=== PATIENT | male | born 1975 | race Caucasian/White ===

== ENCOUNTER → 2021-06-15 00:44 | Outpatient (CLI) | payer OTHER, SELFPAY ==
[2021-06-16 18:19] LABS: SARS-CoV-2 RNA PCR Positive
== END ==
PROVIDERS: PCP Nurse Practitioner Adult Health; Visit Provider Internal Medicine Gastroenterology
DX: U07.1 COVID-19 (principal)
CPT/HCPCS: C9803; U0003; U0005

== ENCOUNTER 2021-08-06 00:03 | Day surgery (SDC) | payer OTHER, SELFPAY ==
[2021-06-04 15:07] VITALS: BMI 32.2
--- NOTE | 2021-06-17 08:30 | SUR.PREOP ---
CALLED 06/16/21 AT 1900 MESSAGE LEFT ON PT'S PERSONALIZED VOICEMAIL ASKING FOR A RETURN CALL TO DISCUSS HIS COVID RESULTS. CALLED PATIENT ON 06/17/21 AT 0830AM, MESSAGE LEFT ON HIS PHONE TO RETURN CALL ARLET. CALLED PATIENT'S EMERGENCY CONTACT MESSAGE LEFT FOR CINTHIA TO RETURN CALL. DR. JIMENEZ NOTIFIED OF PATIENT'S POSITIVE COVID RESULTS AND PATIENT CANCELLED FOR TOMORROW.
[2021-07-26 10:45] VITALS: BMI 32.2
--- NOTE | 2021-08-05 13:13 | WPDANESEPP ---
Anes - Eval Pre Procedure Procedure: Operation Date: 08/06/21 12:30 Proposed Procedures p Screening Colonoscopy - Calixto Carrillo MD Date/Time: 08/05/21 13:13 Pre Op Diagnosis: neoplasm screening Patient Data Age: 46 Gender: M Height: 1.78 m Weight: 102 kg Allergies Allergy/AdvReac Type Severity Reaction Status Date / Time No Known Allergies Allergy Verified 07/26/21 10:42 Home Medications Medication Instructions Recorded Confirmed Type allopurinol 300 mg PO DAILY 06/04/21 06/04/21 History atorvastatin 20 mg PO DAILY 06/04/21 06/04/21 History fluoxetine 20 mg PO DAILY 06/04/21 06/04/21 History omeprazole 20 mg PO EVERY OTHER DAY 06/04/21 07/26/21 History sildenafil [Viagra] 100 mg PO DAILY PRN 06/04/21 06/04/21 History testosterone 3 pump TOPICAL DAILY 06/04/21 06/04/21 History Patient hx anesthesia problems: none Family hx anesthesia problems: none Results Review: All pre-operative results and documents have been reviewed as part of the pre-operative evaluation. [facility] Past Medical History Medical History (Updated 08/05/21 @ 13:15 by Michelle Bustos CRNA) Anxiety Chronic GERD Depression Hyperlipidemia Obesity (BMI 30.0-34.9) Obstructive sleep apnea Surgical History Surgical History (Updated 08/05/21 @ 13:15 by Michelle Bustos CRNA) S/P tendon repair left arm Social History Social History Smoking status: Never smoker Alcohol intake: current Drinks per week: 1 Substance use: never Living arrangements: with friend(s) Spiritual care concerns: No Exam Day of Procedure 08/05/21 13:13
[2021-08-06 11:00] VITALS: BP 140/90; PULSE 78; RESP 18; TEMP 36.5; O2SAT 97; BMI 30.9
[2021-08-06] MEDS: LACTATED RINGERS 1,000 ML 150 ML IV CONT (11:25)
--- NOTE | 2021-08-06 11:40 | PM.HPGS ---
History of Present Illness History of Present Illness Consent: Risks, benefits, and alternatives have been discussed and questions answered. Patient agrees to proceed with procedure. Chief complaint: neoplasm screening Narrative: Ed Larios is a 46 year old male here for first screening colonoscopy Review of Systems Constitutional: Constitutional: Denies headache(s) and Denies weakness Eyes: Eyes: Denies blurry vision ENT: Reports Normal hearing present, Denies headache(s) and Denies neck pain Cardiovascular: Cardiovascular: Denies chest pain and Denies dyspnea Respiratory: Respiratory: Denies dyspnea Gastrointestinal: Gastrointestinal: Reports no additional gastrointestinal complaints Genitourinary: Genitourinary: Denies dysuria Musculoskeletal: Musculoskeletal: Denies neck pain Integumentary/Breasts: Skin/Breast: Denies dry skin Neurologic: Reports Normal hearing present, Denies headache(s) and Denies weakness Psychiatric: Psychiatric: Denies anxiety Endocrine: Endocrine: Denies change in body appearance Hematologic/Lymphatic: Hematologic/Lymphatic: Denies easy bleeding Allergic/Immunologic: Allergic/Immunologic: Denies urticaria PMF Past Medical History Medical History (Updated 08/06/21 @ 11:40 by Calixto Carrillo MD) Anxiety Chronic GERD Colon cancer screening Depression Hyperlipidemia Obesity (BMI 30.0-34.9) Obstructive sleep apnea Surgical History Surgical History (Updated 08/05/21 @ 13:15 by Michelle Bustos CRNA) S/P tendon repair left arm Social History Social History Smoking status: Never smoker Alcohol intake: current Drinks per week: 1 Substance use: never Living arrangements: with friend(s) Spiritual care concerns: No Meds Home Medications and Allergies Home Medications Medication Instructions Recorded Confirmed Type allopurinol 300 mg PO DAILY 06/04/21 08/06/21 History atorvastatin 20 mg PO DAILY 06/04/21 08/06/21 History fluoxetine 20 mg PO DAILY 06/04/21 08/06/21 History omeprazole 20 mg PO EVERY OTHER DAY 06/04/21 08/06/21 History sildenafil [Viagra] 100 mg PO DAILY PRN 06/04/21 08/06/21 History testosterone 3 pump TOPICAL DAILY 06/04/21 08/06/21 History Allergies Allergy/AdvReac Type Severity Reaction Status Date / Time No Known Allergies Allergy Verified 08/06/21 11:11 Vital Signs Vital Signs - 24 hr 08/06/21 11:00 Temperature 97.7 F Pulse Rate 78 Respiratory Rate 18 Blood Pressure 140/90 Pulse Oximetry 97 Exam Const: General: comfortable and no acute distress HENMT: General nose exam: Normal nares present Eyes: General: appearance normal, both eyes and all related structures Neck: Neck: no JVD Resp: Auscultation: clear to auscultation bilaterally Cardio: Rate: regular rate Rhythm: regular rhythm GI: Inspection: non-distended GI Palp: Yes Soft to palpation Skin: General skin exam: normal color Neuro: General: gait normal Speech: normal speech Extrem: General: normal to inspection Psych: Mental Status: mental status grossly normal Assessment and Plan Assessment and plan (1) Colon cancer screening: Code(s): Z12.11 - Encounter for screening for malignant neoplasm of colon Status: Acute Assessment and Plan: colonoscopy
--- NOTE | 2021-08-06 11:47 | WPDANESEFPP ---
Anes - Eval Final PreProcedure Day of Procedure 08/06/21 11:47 Patient weight: obese Heart: regular rate and rhythm Lungs: clear to auscultation and normal air movement Airway: Mallampati scale class II Neurological: alert and oriented Last oral intake: >/= 8 hours ASA classification: III Emergent: no Anesthetic plan: proceed Anesthesia type and monitoring: general GIVS and standard monitoring Results Review: All pre-operative results and documents have been reviewed as part of the pre-operative evaluation. Informed Consent: The patient's anesthetic plan and its attendant risks and benefits were discussed with the patient/family/POA. Questions were solicited and answers provided to the satisfaction of the patient/family/POA.
[2021-08-06 12:39] VITALS: BP 109/77; PULSE 79; RESP 21; O2SAT 96
[2021-08-06 12:49] VITALS: BP 113/66; PULSE 75; RESP 21; O2SAT 95
[2021-08-06 12:59] VITALS: BP 118/80; PULSE 71; RESP 18; O2SAT 96
== END 2021-08-06 13:06 | disposition home or self-care (01) ==
PROVIDERS: PCP Nurse Practitioner Adult Health; Visit Provider Internal Medicine Gastroenterology
PROC: 0DJD8ZZ Inspection of Lower Intestinal Tract, Via Natural or Artificial Opening Endoscopic (ICD-10-PCS; CPT 45378; principal; 2021-08-06 12:30)
DX: Z12.11 Encounter for screening for malignant neoplasm of colon (principal); K57.30 Diverticulosis of large intestine without perforation or abscess without bleeding; E78.5 Hyperlipidemia, unspecified; K21.9 Gastro-esophageal reflux disease without esophagitis; G47.33 Obstructive sleep apnea (adult) (pediatric); F41.8 Other specified anxiety disorders; E66.9 Obesity, unspecified; Z68.30 Body mass index [BMI] 30.0-30.9, adult
CPT/HCPCS: 45378; J2704; J7120

== ENCOUNTER 2022-06-17 19:12 | Emergency (ER) | payer OTHER, SELFPAY ==
--- NOTE | 2022-06-17 19:20 | ED.URI ---
HPI - URI/Sore Throat General Chief Complaint: Upper Respiratory Infection Stated Complaint: Sore Throat/ Fever Time Seen by Provider: 06/17/22 19:20 Source: patient, RN notes reviewed and old records reviewed Mode of arrival: ambulatory Limitations: no limitations History of Present Illness HPI Narrative: 46-year-old male presents to the [facility] with complaints of sore throat, fevers, body aches, headache that started at 11:00 a.m. yesterday Has taken ibuprofen today. Related Data Home Medications Medication Instructions Recorded Confirmed allopurinol 300 mg tablet 300 mg PO DAILY 06/04/21 06/17/22 atorvastatin 20 mg tablet 20 mg PO DAILY 06/04/21 06/17/22 fluoxetine 20 mg capsule 20 mg PO DAILY 06/04/21 06/17/22 omeprazole 20 mg capsule,delayed 20 mg PO EVERY OTHER DAY 06/04/21 06/17/22 release sildenafil 100 mg tablet (Viagra) 100 mg PO DAILY PRN Sexual Activity 06/04/21 06/17/22 testosterone 20.25 mg/1.25 gram 3 pump topical DAILY 06/04/21 06/17/22 (1.62 %) transdermal gel pump Allergies Allergy/AdvReac Type Severity Reaction Status Date / Time No Known Allergies Allergy Verified 06/17/22 19:21 Review of Systems Review of Systems: All systems reviewed & are unremarkable except as noted in HPI and below Constitutional: Constitutional: Reports as per HPI, Reports fatigue and Reports fever(s) Eyes: Eyes: Reports no additional eye complaints ENT: Reports as per HPI and Reports sore throat Cardiovascular: Cardiovascular: Reports no additional cardiovascular complaints, Denies chest pain and Denies dyspnea Respiratory: Respiratory: Reports no additional respiratory complaints, Denies chest congestion, Denies cough and Denies dyspnea Gastrointestinal: Gastrointestinal: Reports no additional gastrointestinal complaints, Denies abdominal pain, Denies nausea and Denies vomiting Musculoskeletal: Musculoskeletal: Reports no additional musculoskeletal complaints Integumentary/Breasts: Skin/Breast: Reports system reviewed and no additional complaints, except as docu Neurologic: Reports system reviewed and no additional complaints, except as documented Psychiatric: Psychiatric: Reports no additional psychiatric complaints Allergic/Immunologic: Allergic/Immunologic: Reports no additional allergic/immunologic complaints PMFSH Past Medical History Medical History Anxiety Chronic GERD Colon cancer screening Depression Hyperlipidemia Obesity (BMI 30.0-34.9) Obstructive sleep apnea Surgical History Surgical History S/P tendon repair left arm Social History Social History Smoking status: Never smoker Alcohol intake: current Drinks per week: 1 Substance use: never Spiritual care concerns: No Comments At the time of my signature, I reviewed and agree with the nursing past medical, surgical, social, and family history. There is no relevant family history pertinent to the patient complaint. Exam Const: General: cooperative, healthy appearing, comfortable, no acute distress, well developed, alert and well nourished Nutritional Appearance: well nourished Orientation/consciousness: patient oriented x3 Limitations: no limitations HENMT: Head: normal to inspection Ears: hearing grossly normal bilaterally and external ears normal Face/Nose/Sinus: Normal external nose present, Normal nares present, Normal nasal mucous membranes and turbinates present and normal facial exam Face and sinus: normal facial exam Mouth: Yes Normal oral and palatal mucosa present, Yes lip normal and Yes moist mucous membranes Throat: posterior oropharynx normal and uvula midline Eyes: General: appearance normal, both eyes and all related structures Alignment and Position: alignment normal Periorbital: periorbital findings normal Conjunctivae: conjunctiva
[2022-06-17 19:23] VITALS: BP 136/77; PULSE 105; RESP 18; TEMP 38.3; O2SAT 98
== END 2022-06-17 19:46 | disposition home or self-care (01) ==
PROVIDERS: Emergency Provider Nurse Practitioner; PCP Nurse Practitioner Family
DX: J02.0 Streptococcal pharyngitis (principal); Z20.822 Contact with and (suspected) exposure to COVID-19; K21.9 Gastro-esophageal reflux disease without esophagitis; E78.5 Hyperlipidemia, unspecified; E66.9 Obesity, unspecified; Z68.34 Body mass index [BMI] 34.0-34.9, adult; F41.9 Anxiety disorder, unspecified; F32.A Depression, unspecified
CPT/HCPCS: 87426; 87804; 87880; 99213; C9803; G0463

== ENCOUNTER 2022-08-01 13:04 | Emergency (ER) | payer OTHER, SELFPAY ==
[2022-08-01 13:11] VITALS: BP 137/71; PULSE 103; RESP 16; TEMP 39; O2SAT 97
--- NOTE | 2022-08-01 13:34 | ED.URI ---
HPI - URI/Sore Throat General Chief Complaint: Upper Respiratory Infection Stated Complaint: uri Time Seen by Provider: 08/01/22 13:34 Source: patient Mode of arrival: ambulatory Limitations: no limitations History of Present Illness HPI Narrative: patient is a 39-year-old male presents with sinus congestion, cough, headache, fever, malaise, chills since Friday. States he was seen 06/17 and diagnosed with strep. Has tried DayQuil and ibuprofen at home with no relief. Related Data Home Medications Medication Instructions Recorded Confirmed allopurinol 300 mg tablet 300 mg PO DAILY 06/04/21 06/17/22 atorvastatin 20 mg tablet 20 mg PO DAILY 06/04/21 06/17/22 fluoxetine 20 mg capsule 20 mg PO DAILY 06/04/21 06/17/22 omeprazole 20 mg capsule,delayed 20 mg PO EVERY OTHER DAY 06/04/21 06/17/22 release sildenafil 100 mg tablet (Viagra) 100 mg PO DAILY PRN Sexual Activity 06/04/21 06/17/22 testosterone 3 pump topical DAILY 06/04/21 06/17/22 Allergies Allergy/AdvReac Type Severity Reaction Status Date / Time No Known Allergies Allergy Verified 08/01/22 13:14 Review of Systems Review of Systems: CONSTITUTIONAL: reports malaise, chills, sweats, or fever.? EYES: Denies visual changes, redness, or discharge.? ENT: Reports rhinorrhea, congestion, sinus pain, otalgia and sore throat.? CARDIOVASCULAR: Denies chest pain, palpitations, or edema.? RESPIRATORY: Reports cough.? Denies dyspnea.? GASTROINTESTINAL: Denies abdominal pain, nausea, vomiting, diarrhea? SKIN: Denies rash or itching.? MUSCULOSKELETAL: Denies myalgia.? NEUROLOGIC: Denies headache All systems reviewed & are unremarkable except as noted in HPI and below PMFSH Past Medical History Medical History Anxiety Chronic GERD Colon cancer screening Depression Hyperlipidemia Obesity (BMI 30.0-34.9) Obstructive sleep apnea Surgical History Surgical History S/P tendon repair left arm Social History Social History Smoking status: Never smoker Alcohol intake: current Drinks per week: 1 Substance use: never Living arrangements: with friend(s) Spiritual care concerns: No Comments At time of signature, agree with nursing past medical, surgical, social and family history. There is no relevant family history pertinent to the presenting complaint? Exam Narrative: GENERAL: Well-appearing, well-nourished, and in no acute distress.? HEAD: Normocephalic, atraumatic.? EYES: PERRLA, conjunctivae clear, and EOMI. No nystagmus.? ENT: Nares clear, turbinates pink, no rhinorrhea or epistaxis. Mucous membranes moist. TM pearly epperson with dull light reflex bilaterally; no tragal tenderness. Oropharynx with erythema without lesions. Tonsils enlarged 2+ and without exudate.? NECK: Supple. No lymphadenopathy. CHEST: No respiratory distress. Clear to auscultation.? No bony deformities, no asymmetry. Speaks in full sentences.? HEART: Regular rate and rhythm. No murmur heard. ? ABDOMEN: Soft, nontender, nondistended EXTREMITIES: Normal range of motion. No edema. ? SKIN: Warm, dry, no rash.? NEURO: Alert and oriented x3. No focal deficits. PSYCH: Normal mood and affect? Course Course Emergency Course: Patient is aware of diagnosis, understands and agrees to treatment plan.? Anticipatory guidance given.? Patient agrees to follow-up as directed and is aware of reasons to seek care at the emergency department.? Portions of this record may have been created with voice recognition software? Level of Care: Express Care Visit Vital Signs Vital signs: Vital Signs Temperature 39.0 C H 08/01/22 13:11 Pulse Rate 103 H 08/01/22 13:11 Respiratory Rate 16 08/01/22 13:11 Blood Pressure 137/71 08/01/22 13:11 Pulse Oximetry 97 08/01/22 13:11 Oxygen Delivery Room Air 08/01/22 13:11 Temperature 39
[2022-08-01] MEDS: ACETAMINOPHEN 500 MG TABLET 1000 MG PO (13:52)
== END 2022-08-01 14:11 | disposition home or self-care (01) ==
PROVIDERS: Nurse Practitioner; Emergency Provider Nurse Practitioner Family; PCP Nurse Practitioner Family
DX: J02.0 Streptococcal pharyngitis (principal); E78.5 Hyperlipidemia, unspecified; Z20.822 Contact with and (suspected) exposure to COVID-19
CPT/HCPCS: 87426; 87804; 87880; 99213; A9270; C9803; G0463

== ENCOUNTER 2023-06-18 21:39 | Emergency (ER) | payer OTHER, SELFPAY ==
--- NOTE | ~2023-06-18 | XR_ITS ---
EXAMINATION: XR humerus RT DATE: 06/19/2023 01:18 INDICATION: Right upper arm tenderness. TECHNIQUE: 2 views of right humerus were obtained. COMPARISON: None. FINDINGS: Bone alignment is normal. No fracture. There is mild osteoarthritis of acromioclavicular mally int. IMPRESSION: 1. Mild osteoarthritis of acromioclavicular joint. Reviewed, dictated and finalized at location [facility]
[2023-06-18 21:41] VITALS: BP 173/84; PULSE 82; RESP 16; TEMP 36.5; O2SAT 98
--- NOTE | 2023-06-19 01:13 | ED.UPPEXIN ---
HPI - Extremity Injury (Upper) General Chief Complaint: Extremity Injury, Upper Stated Complaint: pain in right bicep Time Seen by Provider: 06/19/23 00:14 History of Present Illness HPI narrative: 47-year-old male reports for evaluation for right upper extremity injury after he was bowling earlier this evening. Patient states he was pulling a bowling ball when he felt a says snapping sensation in his biceps. He is since experience pain in the medial distal aspect of his by above the right are. He reports a history of tearing the left biceps tendon is concerned that he teared his he reports she weakness with flexion of his elbow. He denies pain in his shoulder, elbow go before the remainder of extremity. Related Data Home Medications Medication Instructions Recorded Confirmed allopurinol 300 mg tablet 300 mg PO DAILY 06/04/21 06/17/22 atorvastatin 20 mg tablet 20 mg PO DAILY 06/04/21 06/17/22 fluoxetine 20 mg capsule 20 mg PO DAILY 06/04/21 06/17/22 omeprazole 20 mg capsule,delayed 20 mg PO EVERY OTHER DAY 06/04/21 06/17/22 release sildenafil 100 mg tablet (Viagra) 100 mg PO DAILY PRN Sexual Activity 06/04/21 06/17/22 testosterone 3 pump topical DAILY 06/04/21 06/17/22 Allergies Allergy/AdvReac Type Severity Reaction Status Date / Time No Known Allergies Allergy Verified 06/19/23 00:09 Review of Systems Review of Systems: CONSTITUTIONAL: Denies fever, chills, or sweats. EYES: Denies visual changes, redness, or discharge. ENT: Denies rhinorrhea, congestion, sore throat, or otalgia. CARDIOVASCULAR: Denies chest pain, palpitations, or edema. RESPIRATORY: Denies cough or dyspnea. GASTROINTESTINAL: Denies abdominal pain, nausea, vomiting, or diarrhea. GENITOURINARY: Denies dysuria or hematuria. SKIN: Denies rash or itching. MUSCULOSKELETAL: See HPI NEUROLOGIC: Denies headache, numbness, or weakness. PSYCHIATRIC: Denies anxiety or depression. [facility] Past Medical History Medical History Anxiety Chronic GERD Colon cancer screening Depression Hyperlipidemia Obesity (BMI 30.0-34.9) Obstructive sleep apnea Surgical History Surgical History S/P tendon repair left arm Social History Social History Smoking status: Never smoker Alcohol intake: current Drinks per week: 1 Substance use: never Living arrangements: with friend(s) Spiritual care concerns: No Exam Narrative: GENERAL: Well-appearing, well-nourished, and in no acute distress. HEAD: Normocephalic, atraumatic. NECK: Supple. CHEST: Clear to auscultation. No respiratory distress. HEART: Regular rate and rhythm. No murmur heard. Normal peripheral pulses. ABDOMEN: Soft, nontender, nondistended, normal active bowel sounds. EXTREMITIES: Tenderness along the volar aspect of the upper arm overlying the distal biceps brachii mild edema. No tenderness along the AC, elbow or shoulder. No tenderness along the deltoid or triceps. Decreased strength with elbow flexion and supination when compared to the right. Full range of motion of elbow and shoulder. Radial, median, ulnar and axillary nerves are intact. Cap refill less than 2. Radial pulse 2 +. No overlying ecchymosis or skin changes. SKIN: Warm, dry, no rash. NEURO: No focal deficits. Alert and oriented x3 Course Vital Signs Vital signs: Vital Signs Temperature 97.7 F 06/18/23 21:41 Pulse Rate 82 06/18/23 21:41 Respiratory Rate 16 06/18/23 21:41 Blood Pressure 173/84 H 06/18/23 21:41 Pulse Oximetry 98 06/18/23 21:41 Oxygen Delivery Room Air 06/18/23 21:41 Temperature 97.7 F 06/18/23 21:41 Pulse Rate 82 06/18/23 21:41 Respiratory Rate 16 06/18/23 21:41 Blood Pressure 173/84 H 06/18/23 21:41 Pulse Oximetry 98 06/18/23 21:41 Oxygen Delivery Room Air 06/18/23
[2023-06-19 01:48] VITALS: BP 168/81; PULSE 80; RESP 17; O2SAT 99
== END 2023-06-19 01:49 | disposition home or self-care (01) ==
PROVIDERS: Emergency Provider Physician Assistant; PCP Nurse Practitioner Family
DX: S46.211A Strain of muscle, fascia and tendon of other parts of biceps, right arm, initial encounter (principal); F41.9 Anxiety disorder, unspecified; K21.9 Gastro-esophageal reflux disease without esophagitis; F32.A Depression, unspecified; G47.30 Sleep apnea, unspecified; X50.0XXA Overexertion from strenuous movement or load, initial encounter
CPT/HCPCS: 73060; 99283; A4565

== ENCOUNTER → 2023-07-03 09:15 | Outpatient (CLI) | payer OTHER, SELFPAY ==
--- NOTE | ~2023-07-03 | MR_ITS ---
MRI of the right elbow CLINICAL HISTORY: Muscle strain TECHNIQUE: Proton-density and proton-density fat-sat images were acquired in the axial, coronal, and sagittal planes. FINDINGS: Ulnar collateral ligament is intact. Collateral ligament and the lateral ulnar collateral l igament are intact. There is tendinosis and low-grade interstitial tear at the common flexor tendon o rigin at the medial epicondyle. There is mild tendinosis of the common extensor tendon origin at the lateral epicondyle. Bone marrow signals are unremarkable. No articular abnormality is seen. No joint effusion. There is complete rupture of the distal biceps tendon, with retraction by at least 8 cm. The retracte d tendon is wavy and morphology. Brachialis and triceps tendons are intact. IMPRESSION: Complete rupture of the distal biceps tendon, with retraction by at least 8 cm. Tendinosis and low-grade linear interstitial tear of the common flexor tendon origin. Mild tendinosis of the common extensor tendon origin. Reviewed, dictated and finalized at location . P TECH IMPRESSION: Complete rupture of the distal biceps tendon, with retraction by at least 8 cm. Tendinosis and low-grade linear interstitial tear of the common flexor tendon o rigin. Mild tendinosis of the common extensor tendon origin.
== END ==
PROVIDERS: PCP Orthopaedic Surgery; Visit Provider Orthopaedic Surgery
DX: S46.211A Strain of muscle, fascia and tendon of other parts of biceps, right arm, initial encounter (principal)
CPT/HCPCS: 73221

== ENCOUNTER 2023-11-21 08:40 | Outpatient (CLI) | payer OTHER, SELFPAY ==
--- NOTE | 2023-11-21 08:46 | EST_ITS ---
Patient Info Name: Ed Larios Age: 48 years : 1975 Gender: Male Ht: 70 in Wt: 220 lbs BSA: 2.25 m2 HR: 71 bpm BP: 137 / 81 mmHg Heart Rhythm: Sinus Rhythm Exam Date: 11/21/2023 8:57 AM Exam Location: Echo Lab Patient Status: Outpatient Admit Date: 11/21/2023 Staff Ordering Physician: Connie Bernstein APRN Attending Provider: Connie Bernstein APRN Exercise Technologist: Debbie Yost CT Exercise Physician: Dany Watson DO Exam Type: CA stress test treadmill Study Info Indications R06.02 - Shortness of breath A treadmill exercise stress test was performed. Summary 1. 1. Negative Tex exercise stress test for ischemic ST changes by ECG criteria. 2. 2. Reduced functional capacity, achieving 6 METs of workload. 3. 3. Rapid HR response to exercise. 4. 4. Appropriate HR recovery at 1 minute post exercise. 5. 5. No imaging with stress testing. 6. 6. Patient informed of the above results. Protocol: Tex Stress ECG Details Stage: REST Duration (min): 0 min : 58 sec Speed (mph): 0.0 Grade (%): 0 HR (bpm): 73 SBP (mmHg): 137 DBP (mmHg): 81 METS: --- Stage: REST Duration (min): 5 min : 15 sec Speed (mph): 0.0 Grade (%): 0 HR (bpm): 80 SBP (mmHg): 137 DBP (mmHg): 81 METS: --- Stage: STAGE 1 Duration (min): 1 min : 0 sec Speed (mph): 1.7 Grade (%): 10 HR (bpm): 121 SBP (mmHg): 137 DBP (mmHg): 81 METS: --- Stage: STAGE 1 Duration (min): 2 min : 0 sec Speed (mph): 1.7 Grade (%): 10 HR (bpm): 146 SBP (mmHg): 137 DBP (mmHg): 81 METS: --- Stage: STAGE 1 Duration (min): 3 min : 0 sec Speed (mph): 1.7 Grade (%): 10 HR (bpm): 151 SBP (mmHg): 186 DBP (mmHg): 84 METS: --- Stage: STAGE 2 Duration (min): 1 min : 0 sec Speed (mph): 2.5 Grade (%): 12 HR (bpm): 163 SBP (mmHg): 186 DBP (mmHg): 84 METS: --- Stage: STAGE 2 Duration (min): 1 min : 1 sec Speed (mph): 2.5 Grade (%): 12 HR (bpm): 163 SBP (mmHg): 186 DBP (mmHg): 84 METS: --- Stage: RECOVERY Duration (min): 0 min : 58 sec Speed (mph): 0.0 Grade (%): 0 HR (bpm): 135 SBP (mmHg): 154 DBP (mmHg): 70 METS: --- Stage: RECOVERY Duration (min): 1 min : 58 sec Speed (mph): 0.0 Grade (%): 0 HR (bpm): 119 SBP (mmHg): 154 DBP (mmHg): 70 METS: --- Stage: RECOVERY Duration (min): 2 min : 58 sec Speed (mph): 0.0 Grade (%): 0 HR (bpm): 108 SBP (mmHg): 209 DBP (mmHg): 74 METS: --- Stage: RECOVERY Duration (min): 3 min : 58 sec Speed (mph): 0.0 Grade (%): 0 HR (bpm): 103 SBP (mmHg): 194 DBP (mmHg): 73 METS: --- Stage: RECOVERY Duration (min): 4 min : 4 sec Speed (mph): 0.0 Grade (%): 0 HR (bpm): 102 SBP (mmHg): 194 DBP (mmHg): 73 METS: --- Rest HR: 80 bpm Peak HR: 164 bpm Rest Sys BP: 137 mmHg Peak Sys BP: 209 mmHg Max Pred HR: 171 bpm % Max Pred HR: 96 % Target HR: 145 bpm Max RPP: 34
== END 2023-11-21 08:41 | disposition home or self-care (01) ==
LOC: ANHCARD 08:40
PROVIDERS: PCP Nurse Practitioner Adult Health; Visit Provider Nurse Practitioner Adult Health
DX: E66.9 Obesity, unspecified (principal); E78.5 Hyperlipidemia, unspecified; R06.02 Shortness of breath; R53.83 Other fatigue
CPT/HCPCS: 93017